=== PATIENT | male | born 1960 | race Caucasian/White ===

== ENCOUNTER 2023-09-01 20:39 | Emergency (ER) | payer BC, SELFPAY ==
[2023-09-01 20:46] VITALS: BP 122/82
--- NOTE | 2023-09-02 01:24 | ED.GENMED ---
History of Present Illness
General
Chief Complaint: Eye Problems
Source: patient
Exam Limitations: none
Time Seen by Provider: 09/02/23 01:11
Nursing documentation reviewed up to this point in time: agreed with
Travel History
Have you had any contact with someone who has COVID-19?: No
Do you have any symptoms of coronavirus? Fever > 100 degrees, chills, cough, shortness of breath, sore throat, loss of taste or smell, muscle aches, or headache?: No
History of Present Illness
History of Present Illness:
Patient presents to ED secondary to redness noted in his left eye, upon waking up this morning. Denies fever. Denies headache. Denies dizziness. Denies blurred vision. Denies foreign body sensation. Denies recent injury. Patient does report
sneezing intermittently. Denies previous history of similar symptoms. Patient does not take any blood thinning medications.
Review of Systems
Review of Systems
Allergies reviewed?: Yes
All Other Systems: ROS reviewed and negative except as documented in HPI and ROS
Constitutional: Reports no symptoms
EENT: Reports other (Eye redness)
Skin: Reports no symptoms
Neurological: Reports no symptoms; Denies headache or numbness
Phy Exam
Physical Exam
Physical Exam:
Physical Exam
General: no apparent distress, not acutely ill. afebrile
Head: nc/at. Left eye subconjunctival hemorrhage noted along medial aspect. No foreign body noted.
Neck: supple. no meningeal signs.
Neuro: alert and oriented. no focal neurological deficits
Skin: no rash
Psychiatric: well kept. interactive and cooperative
Extremities: no edema. no calf tenderness.
Course
Orders/Labs/Results
Orders:
Orders
09/02/23 01:28
Visual Acuity- Treatment ONCE
Vital Signs
Initial and Last Documented VS:
Initial Vital Signs
Temp Pulse Resp BP Pulse Ox
98.3 F 74 20 122/82 99
09/01/23 20:46 09/01/23 20:46 09/01/23 20:46 09/01/23 20:46 09/01/23 20:46
Last Documented Vital Signs
Temp Pulse Resp BP Pulse Ox
98.3 F 74 20 122/82 99
09/01/23 20:46 09/01/23 20:46 09/01/23 20:46 09/01/23 20:46 09/01/23 20:46
MDM/Problems Addressed
MDM/Problems Addressed:
History and exam consistent with atraumatic subconjunctival hemorrhage. Otherwise, patient does not appear to be in any distress without any visual difficulties. Patient will follow-up with his health education assistant for reevaluation.
*Critical Care Note
Total Time (30-74mins, 75-104mins- exclusive of procedures): Not Applicable
ED Attending Note
-
Portions of this chart may have been created with voice recognition software.� Occasional wrong word or��sound alike� substitutions may have occurred due to the inherent limitations of voice recognition software.
Discharge Plan
Departure
Patient Disposition: Home (Routine Discharge)
Date of Disposition: 09/02/23
Time of Disposition: 01:28
Patient with high blood pressure during this ER visit?: Yes
Discharge Problem:
Subconjunctival hemorrhage
Instructions: Subconjunctival Hemorrhage
Referrals:
Waqar Hou MD [Family Provider] -
Activity Restrictions/Additional Instructions:
As discussed, please follow-up with your health education assistant for reevaluation.
Interventions
Interventions:
*Risk Screen - Suicide Last Done: 09/01/23 20:46
*General Assessment Last Done: 09/01/23 22:44
*Neglect/Abuse Screening Last Done: 09/01/23 20:46
ED- Fall Risk Assessment Last Done: 09/01/23 22:43
*ED COVID-19 Vaccine History Last Done: 09/02/23 01:37
*Nursing Disposition Last Done: 09/02/23 01:37
Discharge Date and Time
Discharge Date/Time: 09/02/23 01:39
Print Language: BOLIVIAN
== END 2023-09-02 01:39 | disposition home or self-care (01) ==
LOC: EMR 20:39
PROVIDERS: EMERGENCY PHYSICIAN Emergency Medicine; FAMILY PHYSICIAN Family Medicine
DX: H11.32 Conjunctival hemorrhage, left eye (principal); R03.0 Elevated blood-pressure reading, without diagnosis of hypertension
CPT/HCPCS: 99283

== ENCOUNTER → 2024-09-06 06:08 | Outpatient (REF) | payer OTHER, SELFPAY | LOC: HWRAD 06:08 | PROVIDERS: ATTENDING PHYSICIAN Family Medicine | DX: M54.16 Radiculopathy, lumbar region (principal) | CPT/HCPCS: 72110 ==